=== PATIENT | male | born 1960 | race Caucasian/White ===

== ENCOUNTER → 2024-01-01 08:19 | Outpatient (REF) | payer BC, SELFPAY | LOC: RCS 08:19 | PROVIDERS: ATTENDING PHYSICIAN Internal Medicine Cardiovascular Disease; FAMILY PHYSICIAN Family Medicine | DX: R93.1 Abnormal findings on diagnostic imaging of heart and coronary circulation (principal) | CPT/HCPCS: 93017; 93350 ==